=== PATIENT | male | born 1955 | race Two or more races ===

== ENCOUNTER → 2025-02-05 | Outpatient (CLI) | payer OTHER, SELFPAY ==
--- NOTE | 2025-02-05 08:20 | EKG_ITS ---
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
[2025-02-05 12:37] VITALS: BMI 39.3
[2025-02-05 14:03] LABS: Basophils % (Auto) 0 % (0-2.5); Eosinophils # (Auto) 0.2 Thou/mm3 (0.0-0.5); Eosinophils % (Auto) 3 % (0-10); Hematocrit 39.2 % (41.0-53.0); Hemoglobin 13.9 g/dL (13.5-16.0); Immature Granulocytes % (Auto) 0 % (0-0); Immature Granulocytes Auto 0.02 Thou/mm3 (0.00-0.00); Lymphocytes # (Auto) 1.7 Thou/mm3 (1.0-4.8); Lymphocytes % (Auto) 22 % (10-50); Mean Corpuscular HGB Conc 35.5 g/dl (31.0-37.0); Mean Corpuscular Hemoglobin 31.2 pg (25.0-35.0); Mean Corpuscular Volume 88 fL (80-100); Monocytes # (Auto) 0.4 Thou/mm3 (0.0-0.8); Monocytes % (Auto) 6 % (0-12); Neutrophils # (Auto) 5.3 Thou/mm3 (1.8-7.7); Neutrophils % (Auto) 69 % (37-80); Nucleated Red Blood Cell % 0 /100 WBC (0); Platelet Count 174 Thou/mm3 (140-440); Red Blood Count 4.45 Miln/mm3 (4.50-5.90); White Blood Count 7.7 Thou/mm3 (3.8-10.6)
[2025-02-05 14:11] LABS: Partial Thromboplastin Time 26.8 Seconds (22.0-36.0); Prothrombin Time 10.8 Seconds (9.0-12.2)
[2025-02-05 14:21] LABS: Alanine Aminotransferase 20 U/L (10-49); Albumin, Serum 4.4 gm/dL (3.4-4.8); Albumin/Globulin Ratio 1.7 (1.2-2.2); Alkaline Phosphatase 60 U/L (46-116); Anion Gap 13 (7-16); BUN/Creatinine Ratio 16 Ratio (12-20); Bilirubin,Total 0.4 mg/dL (0.3-1.2); Blood Urea Nitrogen 16 mg/dL (9-23); Calcium 9.8 mg/dL (8.3-10.6); Calcium (Corrected) 9.8 mg/dL (8.5-10.1); Carbon Dioxide 26.2 mMol/L (20.0-31.0); Chloride 105 mMol/L (98-107); Estimated Creatinine Clearance 75.4 mL/min (>60); Globulin 2.6 gm/dL (2.3-3.5); Glucose 196 mg/dL (74-106); Osmolality,Calculated 293 (275-295); Potassium 3.8 mMol/L (3.4-5.1); Sodium 144 mMol/L (136-145); eGFR > 60 See Note
== END | disposition home or self-care (01) ==
LOC: SLAB 02-09 09:11
PROVIDERS: Anesthesiology; PCP Family Medicine; Referring Provider Orthopaedic Surgery; Visit Provider Orthopaedic Surgery
DX: M17.11 Unilateral primary osteoarthritis, right knee (principal)
CPT/HCPCS: 36415; 80053; 85025; 85610; 85730; 86850; 86900; 86901; 93005

== ENCOUNTER 2025-03-06 15:23 | Observation (INO) | payer OTHER, SELFPAY ==
[2025-03-05 11:30] VITALS: BMI 40.1
[2025-03-05 12:02] LABS: Basophils # (Auto) 0.0 Thou/mm3 (0.0-0.2); Basophils % (Auto) 0 % (0-2.5); Eosinophils # (Auto) 0.2 Thou/mm3 (0.0-0.5); Eosinophils % (Auto) 2 % (0-10); Hematocrit 43.3 % (41.0-53.0); Hemoglobin 14.3 g/dL (13.5-16.0); Immature Granulocytes Auto 0.03 Thou/mm3 (0.00-0.00); Lymphocytes # (Auto) 2.1 Thou/mm3 (1.0-4.8); Lymphocytes % (Auto) 26 % (10-50); Mean Corpuscular HGB Conc 33.0 g/dl (31.0-37.0); Mean Corpuscular Hemoglobin 30.5 pg (25.0-35.0); Mean Corpuscular Volume 92 fL (80-100); Monocytes # (Auto) 0.6 Thou/mm3 (0.0-0.8); Monocytes % (Auto) 7 % (0-12); Neutrophils # (Auto) 5.1 Thou/mm3 (1.8-7.7); Neutrophils % (Auto) 64 % (37-80); Nucleated Red Blood Cell # 0.00 Thou/mm3 (0.00-0.00); Nucleated Red Blood Cell % 0 /100 WBC (0); Platelet Count 177 Thou/mm3 (140-440); RDW Standard Deviation 43.2 fL (35.1-43.9); Red Blood Count 4.69 Miln/mm3 (4.50-5.90); White Blood Count 8.0 Thou/mm3 (3.8-10.6)
[2025-03-05 12:20] LABS: INR 1.0 (0.9-1.3); Partial Thromboplastin Time 27.3 Seconds (22.0-36.0); Prothrombin Time 10.5 Seconds (9.0-12.2)
[2025-03-05 12:36] LABS: Alanine Aminotransferase 29 U/L (10-49); Albumin, Serum 4.6 gm/dL (3.4-4.8); Albumin/Globulin Ratio 1.5 (1.2-2.2); Alkaline Phosphatase 69 U/L (46-116); Anion Gap 10 (7-16); Aspartate Amino Transferase 25 U/L (0-34); BUN/Creatinine Ratio 18 Ratio (12-20); Bilirubin,Total 0.6 mg/dL (0.3-1.2); Blood Urea Nitrogen 16 mg/dL (9-23); Calcium 9.5 mg/dL (8.3-10.6); Calcium (Corrected) 9.5 mg/dL (8.5-10.1); Carbon Dioxide 27.7 mMol/L (20.0-31.0); Chloride 106 mMol/L (98-107); Creatinine (Component) 0.9 mg/dL (0.6-1.3); Estimated Creatinine Clearance 81.8 mL/min (>60); Globulin 3.0 gm/dL (2.3-3.5); Glucose 110 mg/dL (74-106); Osmolality,Calculated 289 (275-295); Potassium 4.0 mMol/L (3.4-5.1); Sodium 144 mMol/L (136-145); Total Protein 7.6 gm/dL (5.7-8.2); eGFR > 60 See Note
--- NOTE | 2025-03-05 14:09 | ESHP_ITS ---
RE: DANIEL MARTINEZ : 1955 DATE OF ADMISSION: 03/05/2025 The patient came to my office on 03/05/2025 for detailed preop history and physical examination. HISTORY OF PRESENT COMPLAINT: The patient presents to me with history of pain in the right knee joint going on for the last couple of years or so. However, right knee pain in the last 5-6 months is extremely bad and the patient is unable to sleep. The patient graded intensity of pain to be 8-9/10. Quality of life and activities of daily living is affected. Unable to sleep. The patient has to stop walking after 1-2 block due to pain. The patient stated that he walks or sits and he starts having throbbing pain. PAST MEDICAL HISTORY: No history of diabetes mellitus, high blood pressure, asthma, seizures, chest pain, myocardial infarction, or bleeding disorder. PAST SURGICAL HISTORY: Nil. DRUG HISTORY: Pain medication on and off. ALLERGIES: NIL KNOWN. FAMILY HISTORY AND SOCIAL HISTORY: The patient denies smoking, drinking, and is retired. PHYSICAL EXAMINATION: GENERAL: Normal built person. VITAL SIGNS: Pulse 81 per minute, blood pressure 150/90. NECK: Soft. Supple. No mass felt. Trachea is centrally placed. CARDIOVASCULAR SYSTEM: First and second heart sounds normal. No murmur heard. RESPIRATORY SYSTEM: Bilateral vesicular breath sounds. CHEST: Clear. ABDOMEN: Soft. No masses felt. Bowel sounds present. Per rectal exam is not indicated in this case. The patient is advised to see his family physician for regular examination. EXTREMITIES: Right knee examination revealed 1+ swelling and 2+ tenderness. 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 Active range of motion 0 to 115 degrees of flexion. Crepitus is present. The patient walks with a limp. Neurovascularly is intact. DIAGNOSTIC DATA: X-ray of the right knee joint was reviewed and it reveals significant osteoarthritic changes with decreased medial and patellofemoral joint space. ASSESSMENT AND PLAN: Since the patient was symptomatic, therefore, right total knee replacement was discussed and advised. Detailed discussion took place. With the help of pictures, diagram and was explained to the patient and the family. Risks with anesthesia were explained and that includes, but not limited to reaction to anesthetic agents, cardiac arrest, and rarely it might be fatal. Risks with operations include infection and if that happens, the patient may need further surgical procedure. Other risks include delayed healing, wound dehiscence, etc. No guarantee is given regarding outcome of the procedure and/or relief of symptoms. Possibility of blood transfusion was discussed and the patient stated that he would accept blood when it is absolutely necessary. The patient is also cleared for surgical procedure. Surgery is booked for 03/06/2025. Appropriate lab was done. DT: 12:01:00 TT: 13:43:00 Ref: [id number] - TID: [id number]
[2025-03-06] VITALS (16 sets, daily range): BP systolic 102–150; BP diastolic 78–99; PULSE 74–94; RESP 12–20; TEMP 36.3–37.1; O2SAT 92–97; BMI 40.4
--- NOTE | 2025-03-06 10:07 | SUR.PREOP ---
Patient expressed gratitude for prayer before their procedure.
--- NOTE | 2025-03-06 13:22 | XR_ITS ---
Examination: Knee, right , 3 views Technique: Knee AP, lateral, oblique 3 views Date and time of exam: March 06, 2025 1409 hours INDICATIONS: Postop knee replacement today FINDINGS: Total right knee arthroplasty. Satisfactory alignment. Moderate osteopenia. No fracture. IMPRESSION: Total right knee arthroplasty with satisfactory alignment
--- NOTE | 2025-03-06 13:22 | PD.SUROPNT ---
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 Femur size 7 narrow Tibial baseplate size E Polyethylene size 10 mm CR Patella size 29 mm Findings Refer dictation Procedure Description The patient was given a knee block was also given. Anesthesia. Once satisfactory anesthesia was achieved a tourniquet was placed on right upper thigh. Intravenous antibiotics was given at the time of anesthesia. The patient was thoroughly prepped and draped. After using Esmarch the tourniquet pressure was raised to 350 mmHg. A skin incision was made 2 inches proximal to the upper pole of patella going as far down as up to the medial aspect of the tibial tuberosity. The skin was raised as a flap on the site. The bleeding vessels were electrocoagulated as and when encountered. The quadriceps tendon, medial border of the patella and the patellar tendon along the medial aspect of the tibial tuberosity was incised and reflected. The patellar tendon was reflected as much as needed to regis the patella. The soft tissue from the upper medial border of the tibia was reflected to correct her genu varum deformity. The knee joint was flexed. The anterior cruciate ligament, medial and lateral meniscus were excised. Next para drill hole was made to the inferior surface of the femur. Following that a swab was placed. A 4?? of abduction was already put into it. Following that a cutting block for the inferior cut of the femur was placed and nicely secured with the pins. The swat was removed. The inferior cut of the femur was made and after that the cutting block was removed. Following that a sizer was placed. A decision was made to use size [7] femur implant. 2 drill holes each in 3?? of external rotation were made. The sizer was removed. Size [7] cutting block was placed. Following that anterior, posterior, anterior chamfer and posterior chamfer cuts were made. The cutting block was removed. The knee joint was extended and a 10 mm trial plastic was removed and the intended level of the tibial cut was marked. The knee joint was flexed. With the help of double-pronged the tibia was displaced anteriorly. An extramedullary jig for the cutting block placement of the tibia was placed. The mechanical axis of the zig was parallel to the mechanical axis of the tibia. Following that the tibial cutting block was placed at the desired level and was secured nicely with the help of pins. Following that the tibial cut was made. In this case was posterior cruciate ligament was saved. The cutting block was removed. The spacer was placed and a decision was made to use size [10] polyethylene. The sizing of the tibial baseplate was done and the decision was made to use size [E] tibial baseplate. Following that size [7] trial femur implant was placed in lateralized position and size [E] tibial tibial baseplate along with size [10] plastic was placed in knee joint was flexed and extended quite a few times and tibial baseplate was allowed to sit wherever it wanted to. The markings were made for the tibial baseplate. 2 drill holes were made for the inferior surface of the femur trial implant. The trial implant was removed and tibial baseplate was placed again with the help of pins. The collar was placed and superior hole was drilled. Following that a fin cut was made. The patella was reamed with [29] mm diameter reamer. [12] mm thickness was left. A collar was placed and 3 drill holes were made. All the trial implant was placed and patellar tracking was checked and found to be good. Lateral release was done at this point. The wound was irrigated with antibiotic solution every 4-5 minutes. Now the power lavage antibiotic solution was used. The knee joint was flexed. The bone were made dry. The cement was mixed. With the help of cement the tibial baseplate was mounted. The excess cement was removed. The femur implant was placed and trial plastic was placed and knee joint was extended. Patella was also mounted with the help of cementing. Excess cement was removed. Osteophytes from the patella was removed at this time. Once the cement was set the tourniquet pressure was released. The bleeding vessels were electrocoagulated. The trial plastic was removed and 10 mm ultra high molecular weight polyethylene was placed. Closure The quadriceps muscle was closed with a 1 strata fix Vicryl in continuous fashion. The fat layer was closed with help of 2-0 STRATAFIX Vicryl strata with continuous fashion. The skin was closed with subcutaneous absorbable suture. The wound was cleaned with hydrogen proximal solution and a sterile dressing was applied. Patient tolerated procedure very well. Estimated blood loss [25] mL. Prognosis in this case is good. This was taken to the recovery room in good condition. Anesthesia spinal and other Pathology / specimen None Estimated Blood Loss 25 Surgeon José Miguel Barnes MD Surgical Staff Operation Date: 03/06/25 10:50 Case Staff Anesthesiologist: Kevin Bender RNjewish history professor: Christiano Mooney
--- NOTE | 2025-03-06 13:39 | SUR.PHASEI ---
1339: Pt. AAOx4, vitals stable, breathing unlabored, no complaint of pain or nausea, dressing to right knee CDI, no active bleed noted, pt. able to wiggle bilateral legs, cap refill to bilateral feet less than 3 seconds, bilateral dorsalis pedis pulses strong and regular, report received from MD Bender and Scott JOSHI.
[2025-03-06] MEDS: SODIUM CHLORIDE 0.9% 1000 ML 1,000 ML 60 ML IV (15:12)
--- NOTE | 2025-03-06 15:30 | SUR.PHASEII ---
1530: Pt. AAOX4, vitals stable, breathing unlabored, no complaint of pain or nausea, dressing to right knee CDI, no active bleed noted, pt. able to move bilateral legs, cap refill to bilateral feet less than 3 seconds, bilateral dorsalis pedis pulses strong and regular, pt. tolerated sips of juice and bites of jello well, gave report to Lizbeth JOSHI prior to transfer to room 354. Family made aware of transfer to room, pt. transferred with all personal belongings.
[2025-03-06] MEDS: MORPHINE SULF INJ 10 MG/ML VIAL 4 MG IVP (17:13)
[2025-03-06] MEDS: ceFAZolin/D5W 1 GM IVPB 1 GM/50 ML BAG IV (21:18)
[2025-03-07] VITALS: BP 140/80; PULSE 90; RESP 18; TEMP 36.2; O2SAT 94
[2025-03-07 04:00] VITALS: BP 140/86; PULSE 83; RESP 18; TEMP 36; O2SAT 93
[2025-03-07] MEDS: ceFAZolin/D5W 1 GM IVPB 1 GM/50 ML BAG IV (05:17)
[2025-03-07 06:19] LABS: Basophils # (Auto) 0.0 Thou/mm3 (0.0-0.2); Basophils % (Auto) 0 % (0-2.5); Eosinophils # (Auto) 0.0 Thou/mm3 (0.0-0.5); Eosinophils % (Auto) 0 % (0-10); Hematocrit 36.5 % (41.0-53.0); Hemoglobin 12.9 g/dL (13.5-16.0); Immature Granulocytes Auto 0.04 Thou/mm3 (0.00-0.00); Lymphocytes # (Auto) 1.2 Thou/mm3 (1.0-4.8); Lymphocytes % (Auto) 8 % (10-50); Mean Corpuscular HGB Conc 35.3 g/dl (31.0-37.0); Mean Corpuscular Hemoglobin 31.4 pg (25.0-35.0); Mean Corpuscular Volume 89 fL (80-100); Monocytes # (Auto) 0.9 Thou/mm3 (0.0-0.8); Monocytes % (Auto) 6 % (0-12); Neutrophils # (Auto) 12.1 Thou/mm3 (1.8-7.7); Neutrophils % (Auto) 85 % (37-80); Nucleated Red Blood Cell # 0.00 Thou/mm3 (0.00-0.00); Nucleated Red Blood Cell % 0 /100 WBC (0); Platelet Count 155 Thou/mm3 (140-440); RDW Standard Deviation 41.1 fL (35.1-43.9); Red Blood Count 4.11 Miln/mm3 (4.50-5.90); White Blood Count 14.2 Thou/mm3 (3.8-10.6)
[2025-03-07] MEDS: SODIUM CHLORIDE 0.9% 1000 ML 1,000 ML 60 ML IV (07:41)
[2025-03-07 07:45] VITALS: BP 134/86; PULSE 84; RESP 16; TEMP 36.3; O2SAT 95
[2025-03-07] MEDS: MORPHINE SULF INJ 10 MG/ML VIAL 4 MG IVP (09:33)
[2025-03-07 11:45] VITALS: BP 137/83; PULSE 80; RESP 16; TEMP 36.3; O2SAT 94
--- NOTE | 2025-03-07 12:05 | PC.PT ---
Patient has knee buckling (Pls see PT evaluation.) Informed Dr. Barnes. Doctor agreed to let patient stay for tonight. RN made aware.
--- NOTE | 2025-03-07 13:34 | PC.NURSE ---
New orders received, initiate Flomax and Toradol 15 mg IV every 6 hours as needed for pain. MD also discontinued fluids. Will continue to monitor.
[2025-03-07 16:00] VITALS: BP 134/81; PULSE 83; RESP 18; TEMP 36.7; O2SAT 97
[2025-03-07] MEDS: KETOROLAC INJ 30 MG/ML VIAL 15 MG IVP (16:52)
[2025-03-07 20:00] VITALS: BP 180/98; PULSE 93; RESP 18; TEMP 36.8; O2SAT 91
[2025-03-07] MEDS: TAMSULOSIN HCL 0.4 MG CAPSULE PO (20:06)
[2025-03-08] VITALS: BP 144/80; PULSE 94; RESP 18; TEMP 36.6; O2SAT 92
[2025-03-08 04:00] VITALS: BP 150/91; PULSE 93; RESP 18; TEMP 36.3; O2SAT 92
[2025-03-08] MEDS: KETOROLAC INJ 30 MG/ML VIAL 15 MG IVP (07:40)
[2025-03-08 07:54] VITALS: BP 143/86; PULSE 91; RESP 15; TEMP 36.4; O2SAT 94
--- NOTE | 2025-03-08 10:44 | CHAP ---
Patient was visited by the Spiritual Care Volunteer who prayed for them. (Volunteer was in the hospital from 10:18-10:44)
[2025-03-08 12:00] VITALS: BP 136/90; PULSE 87; RESP 16; TEMP 37.1; O2SAT 95
[2025-03-08 15:43] VITALS: BP 126/79; PULSE 92; RESP 18; TEMP 36.2; O2SAT 92
--- NOTE | 2025-03-13 17:18 | PD.ANESPROG ---
Documentation for date of: 03/13/25 POST ANESTHESIA NOTE: Patient had spinal anesthesia and R femoral block for R TKA on 03/09/25. I just called and spoke with him on the phone via aerial photograph interpreter and he denied any problems from anesthesia. Kevin Bender MD Anesthesia Progress Note Progress Note Most recent Vital Signs: Last Vital Signs Temp 97.1 F 03/08/25 15:43 Pulse 92 03/08/25 15:43 Resp 18 03/08/25 15:43 BP 126/79 03/08/25 15:43 Pulse Ox 92 L 03/08/25 15:43 O2 Del Method Room Air 03/08/25 12:00 FiO2 2 03/06/25 13:49
== END 2025-03-08 17:58 | disposition home or self-care (01) ==
LOC: S3NX 15:41
PROVIDERS: Anesthesiology; Admitting Provider Orthopaedic Surgery; PCP Family Medicine; Referring Provider Orthopaedic Surgery; Visit Provider Orthopaedic Surgery
PROC: (CPT 27447; principal; 2025-03-06 10:35)
DX: M17.11 Unilateral primary osteoarthritis, right knee (principal); M24.661 Ankylosis, right knee; M25.761 Osteophyte, right knee
CPT/HCPCS: 27447; 36415; 73562; 80053; 85025; 85610; 85730; 86850; 86900; 86901; 86923; 87081; 96361; 96365; 96375; 96376; 97163; A4217; C1713; C1776; G0378; J0689; J0690; J1100; J1200; J1580; J1885; J2250; J2270; J2704; J2795; J3010; J3490; J7030; A9270

== ENCOUNTER 2025-07-21 10:30 | Outpatient (RCR) | payer OTHER, MEDICARE, MEDICAID, SELFPAY ==
--- NOTE | 2025-07-02 10:35 | PT.OIERPT ---
PT OP Initial Eval Patient Information Outpatient Physical Therapy Treatment Date: 07/02/25 Visit Reasons: total knee replacement right Medical Diagnosis: Z96.651 Treatment Dx #1: Dec ROM R knee Treatment Dx #2: R knee pain Start of Care: 07/02/25 Date of Onset: 03/06/25 DOS Smoking Status Smoking Status: Never smoker Initial Assessment Subjective: Pt is 70 yr old mongolian speaking male s/p R TKA 4 months ago presents ambulating with SPC and reports difficulty bending the knee due to stiffness. He walks about 40-60 mins for exercise. He feels limited with prolonged walking, kneeling, and bending the knee. PLOF: prior to onset of R knee pain pt was ambulating without assistive device x community distances PMH: none reported Pt goal: to bend the knee back more Objective: R knee AROM: ? Flexion: 70 deg ? Extension: full ? PROM: 85 deg flexion ? SLR: 75 deg with slight extensor lag ? Strength: R quads 3+/5 limited by patella compression pain, hamstrings 3+/5 ? Antalgic gait pattern with decreased stance time on R Assessment: Pt presentation consistent with post op R TKA with decreased ROM, strength ? and WB tolerance. Pt lacks flexion ROM that is limited by ? myofascial limitations and pain.? Pt requires skilled therapy to improve ROM ? and strength and has good rehab potential.? Eval followed by HEP with printout. Short Term and [facility] Goals 1.? Ind with HEP 2.? Improved knee ROM to full extension to 110 deg flexion 3.? Improved quad and hamstring strength to 4/5 4.? Improved ambulatory tolerance to community distances with symmetrical gait pattern Treatment Plan 1. Manual therapy ? 2. Therex ? 3. Modalities as indicated, moist heat, ice, estim Frequency and Duration: 2x a week for 16 sessions plus the evaluation Certification Dates: 07/02/25 to 09/30/25 Procedure Charges OP PT Eval Mod Complex 30 minutes: Yes
--- NOTE | 2025-07-09 10:41 | PT.ODAYNRPT ---
PT Outpatient Daily Note OP Daily Note Outpatient Physical Therapy Treatment Date: 07/09/25 Visit Reasons: total knee replacement right Subjective: Same as time of evaluation Objective: See F/S for therex Assessment: Improved knee flexion with lunging on R to almost 90 deg Plan: Continued per POC Length of Time (minutes) of Treatment: 30 Minutes Procedure Charges Therapeutic Exercise 30 minutes: Yes
--- NOTE | 2025-07-13 14:58 | PT.ODAYNRPT ---
PT Outpatient Daily Note OP Daily Note Outpatient Physical Therapy Treatment Date: 07/13/25 Visit Reasons: total knee replacement right Subjective: Same as time of evaluation Objective: See f/S for therex MT: PROM into flexion x7' Assessment: Improved PROM into flexion to almost 90 deg with pain and myofascial tension at end-range Plan: Continue per POC Length of Time (minutes) of Treatment: 30 Minutes Procedure Charges Therapeutic Exercise 30 minutes: Yes
--- NOTE | 2025-07-15 11:45 | PTNOTE_ITS ---
PT Outpatient Daily Note OP Daily Note Outpatient Physical Therapy Treatment Date: 07/15/25 Visit Reasons: total knee replacement right Subjective: Pt is walking 1 hr a day. Low pain with walking in the knee but but he limps Objective: See f/S for therex MT: PROM into flexion x7' Assessment: Improved PROM into flexion to 90 deg with pain and myofascial tension at end- range Plan: Continue per POC Length of Time (minutes) of Treatment: 30 Minutes Procedure Charges Therapeutic Exercise 30 minutes: Yes
--- NOTE | 2025-07-21 12:42 | PT.ODAYNRPT ---
PT Outpatient Daily Note OP Daily Note Outpatient Physical Therapy Treatment Date: 07/21/25 Visit Reasons: total knee replacement right Subjective: No new concerns. Objective: Please see flow sheet for ther ex list. Assessment: Focus on restoring ROm and strength per pt tolerance. Plan: Continue with poC. Length of Time (minutes) of Treatment: 30 Minutes Procedure Charges Therapeutic Exercise 30 minutes: Yes
== END 2025-07-26 23:59 | disposition home or self-care (01) ==
LOC: CPTX 10:30
PROVIDERS: PCP Orthopaedic Surgery; Referring Provider Orthopaedic Surgery; Visit Provider Orthopaedic Surgery
DX: Z47.1 Aftercare following joint replacement surgery (principal); Z96.651 Presence of right artificial knee joint; M25.561 Pain in right knee; R26.2 Difficulty in walking, not elsewhere classified
CPT/HCPCS: 97110; 97162